=== PATIENT | female | born 1985 | race Caucasian/White ===

== ENCOUNTER 2022-08-17 20:15 | Emergency (ER) | payer BC ==
[~2022-08-17] VITALS: Ht 160 cm; Wt 74.8 kg
--- NOTE | 2022-08-17 21:27 | NUR ---
Dr. Hansen at bedside. MSE in progress.
[2022-08-17] MEDS ORDERED: HYDR-3972 PO (21:37)
--- NOTE | 2022-08-17 21:45 | NUR ---
Patient discharged to home in stable condition. A/O x 4. NAD noted. Ambulatory with a steady gait. All belongings with patient. Written and verbal after care instructions given. Patient verbalizes understanding of instructions. Stressed follow up or return to ER for worsening s/s.
== END 2022-08-17 21:45 | disposition home or self-care (01) ==
LOC: ER 20:17 → EDSEX 20:17 → ER 21:45
DX: B34.9 Viral infection, unspecified (principal); J02.9 Acute pharyngitis, unspecified
CPT/HCPCS: A4663